=== PATIENT | male | born 1955 | race Caucasian/White ===

== ENCOUNTER 2018-02-05 13:27 | Outpatient (CLI) | payer OTHER | END 2018-02-05 13:42 | disposition home or self-care (01) | LOC: SONOGRAMA 13:27 | DX: M75.32 Calcific tendinitis of left shoulder (principal) ==

== ENCOUNTER 2018-09-18 08:51 | Outpatient (CLI) | payer OTHER | END 2018-09-18 09:06 | disposition home or self-care (01) | LOC: SONOGRAMA 08:51 → MAMO-SONO 09:15 | DX: M72.2 Plantar fascial fibromatosis (principal) ==